=== PATIENT | female | born 1995 | race African-American/Black ===

== ENCOUNTER 2022-06-21 11:55 | Outpatient (CLI) | payer OTHER, SELFPAY ==
--- NOTE | ~2022-06-21 | US_ITS ---
EXAMINATION: US OB <= 14 weeks fetus DATE: 06/21/2022 12:39 INDICATION: Uncertain gestational dates. TECHNIQUE: Real-time transabdominal obstetric ultrasound. FINDINGS: No prior studies for comparison. The uterus measures 11.8 x 6.9 x 8.4 cm. There is an intrauterine gestational sac, with pole id entified. The crown rump length measures 2.8 cm, which correlates with a estimated gestational age o f 9 weeks 4 days. heart tones are identified measuring 172 bpm. The ovaries are within normal limits. No free fluid in the pelvis. IMPRESSION: 1. SL IUP with an EGA of 9 weeks, 4 days (EDC by current ultrasound of 01/20/2023). Reviewed, dictated and finalized at location A. 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 SL IUP with an EGA of 9 weeks, 4 days (EDC by current ultrasound of 3).
== END 2022-06-21 11:56 | disposition home or self-care (01) ==
LOC: ANHIMG 12:03
PROVIDERS: Visit Provider Obstetrics & Gynecology Gynecology
DX: Z36.87 Encounter for antenatal screening for uncertain dates (principal); Z3A.09 9 weeks gestation of pregnancy
CPT/HCPCS: 76801

== ENCOUNTER 2022-08-19 13:23 | Outpatient (CLI) | payer OTHER, SELFPAY ==
--- NOTE | ~2022-08-19 | US_ITS ---
EXAMINATION: US OB /maternal detail DATE: 08/19/2022 14:39 INDICATION: Second trimester anatomic survey TECHNIQUE: Real-time ultrasound of the pelvis was performed. COMPARISON: None. FINDINGS: There is a single living fetus in vertex presentation. The placenta is fundal. heart rate is 16 3 beats per minute (bpm). cardiac activity and movement are noted. The amniotic fluid in dex is subjectively normal. The following anatomy was identified as normal: 4 chamber heart 3 vessel cord cord insertion kidneys urinary bladder stomach spine diaphragm ventricles cisterna magna cerebellum The following biometric data were obtained: Biparietal diameter (BPD): 4.2 cm; head circumference (HC): 15.1 cm; abdominal circumference (AC): 12 .4 cm; femur length (FL): 2.6 cm. These measurements are concordant. Estimated weight is 221 g +/- 33 g, which correlates with the 48th percentile when 01/20/2023 is used as estimated date of delivery. As single measurements, these parameters are each equal to the following estimated gestational ages w ith ranges of +/- 2 standard deviations: BPD: 18 weeks 4 days +/- 1 weeks 5 days. HC: 18 weeks 1 days +/- 1 weeks 3 days. AC: 18 weeks 0 days +/- 2 weeks 0 days. FL: 18 weeks 0 days +/- 1 weeks 3 days. estimated gestational age based solely on measurements from this exam is 18 weeks 1 days +/- 1 weeks 2 days. IMPRESSION: 1. Single living fetus in vertex presentation. 2. Estimated weight is 221 g +/- 33 g, which correlates with the 48th percentile when 01/20/2023 is used as estimated date of delivery. Reviewed, dictated and finalized at location F. MANAGER IMPRESSION: 1. Single living fetus in vertex presentation. 2. Estimated weight is 221 g +/- 33 g, which correlates with the 48th per centile when 01/20/2023 is used as estimated date of delivery.
== END 2022-08-19 13:24 | disposition home or self-care (01) ==
PROVIDERS: Visit Provider Advanced Practice Midwife
DX: Z36.9 Encounter for antenatal screening, unspecified (principal)
CPT/HCPCS: 76805

== ENCOUNTER 2022-09-14 09:46 | Outpatient (CLI) | payer OTHER, SELFPAY ==
[2022-09-14 11:03] LABS: Basophils Percent Auto 0.5 % (0.2-1.2); Eosinophils Absolute Auto 0.1 K/mm3 (0-0.3); Eosinophils Percent Auto 1.8 % (0-4.4); Hematocrit 32.7 % (37.0-47.0); Immature Granulocyte Absolute 0.04 K/mm3 (0.00-0.031); Immature Granulocyte Percent A 0.7 % (0-0.5); Lymphocytes Absolute Auto 1.73 K/mm3 (0.9-3.2); Lymphocytes Percent Auto 31.7 % (18.3-44.2); Mean Corpuscular HGB Conc 33.6 g/dl (32-36); Mean Corpuscular Hemoglobin 30.8 pg (26-34); Mean Corpuscular Volume 91.6 fl (80-100); Mean Platelet Volume 11.6 fl (7.4-10.4); Monocytes Absolute Auto 0.6 K/mm3 (0.1-0.6); Monocytes Percent Auto 10.6 % (2.6-8.5); Neutrophils Percent Auto 54.7 % (45.5-73.1); Platelet Count Result 177 k/mm3 (150-375); Red Blood Count 3.57 M/mm3 (4.2-5.4); Red Cell Distribution Width 13.8 % (11.5-14.5); White Blood Count 5.5 K/mm3 (4.5-10.0)
[2022-09-14 12:00] LABS: HIV 1/2 Ab P24 Ag Result Negative (Negative)
[2022-09-14 12:20] LABS: Hemoglobin A1C 4.9 % (<5.7)
[2022-09-14 12:34] LABS: Hepatitis B Surface Antigen Negative (Negative); Rubella IgG Antibody 8.8 IU/ML
[2022-09-14 12:37] LABS: Vitamin D 25 Hydroxy 14.2 ng/mL
[2022-09-14 12:50] LABS: Hepatitis C Virus Antibody Negative (Negative)
[2022-09-15 13:09] LABS: Rapid Plasma Reagin Non-Reactive (NonReactive)
== END 2022-09-14 09:47 | disposition home or self-care (01) ==
LOC: ANHLAB 09:48
PROVIDERS: Visit Provider Obstetrics & Gynecology Gynecology
DX: Z36.9 Encounter for antenatal screening, unspecified (principal); Z3A.00 Weeks of gestation of pregnancy not specified
CPT/HCPCS: 36415; 82306; 82728; 83036; 85025; 86038; 86592; 86703; 86762; 86803; 86850; 86900; 86901; 87340; G0432

== ENCOUNTER 2022-10-12 09:47 | Outpatient (CLI) | payer OTHER, SELFPAY ==
--- NOTE | ~2022-10-12 | US_ITS ---
Pelvic ultrasound. Clinical History: Size greater than dates, third trimester Technique: Realtime transabdominal scanning of the pelvis was performed. Color flow Doppler and Doppl er spectral analysis were performed. Findings: The uterus is anteverted, and contains an intrauterine gestation. heart rate is 146 b pm. Placenta is anteriorly located. The tip of the placenta is 3 cm from the internal cervical os. Ce rvix is closed, measures 7.7 cm in length. Biparietal diameter 7.0 cm. Head circumference is 26.3 cm. Abdominal circumference is 22.8 cm. Femur length is 5.1 cm. Amniotic fluid index is 19.1 Neither ovary seen. There is no evidence of free fluid in the cul de sac. Impression: Live intrauterine gestation with estimated gestational age of 29 weeks 5 days, +/- 2 weeks 1 day. PABLO is 12/29/2022. Estimated weight is 1402 grams. Reviewed, dictated and finalized at [facility]. Impression: Live intrauterine gestation with estimated gestational age of 29 weeks 5 days, +/- 2 weeks 1 day. PABLO is 12/29/2022. Estimated weight is 1402 grams.
== END 2022-10-12 09:48 | disposition home or self-care (01) ==
PROVIDERS: Visit Provider Obstetrics & Gynecology Gynecology
DX: O36.63X0 Maternal care for excessive fetal growth, third trimester, not applicable or unspecified (principal); Z3A.29 29 weeks gestation of pregnancy
CPT/HCPCS: 76816

== ENCOUNTER 2022-12-06 09:41 | Outpatient (CLI) | payer OTHER, SELFPAY ==
--- NOTE | ~2022-12-06 | US_ITS ---
EXAMINATION: US OB follow up DATE: 12/06/2022 10:24 INDICATION: Gestational size greater than dates. TECHNIQUE: Real-time transabdominal obstetric ultrasound. FINDINGS: Comparison to multiple prior studies sequentially, with oldest reviewed study dated 2021. There is a single living fetus in breech presentation. The placenta is anterior without placenta pre via. cardiac activity and movement is noted with a heart rate of 125 beats per minute. T he amniotic fluid volume is normal. MELISSA measures 15.4 cm. The following biometric data were obtained: BPD: 83mm corresponds to gestational age 33 weeks 4 days. Head circumference: 312mm corresponds to gestational age 34 weeks 6 days. Abdominal circumference: 304mm corresponds to gestational age 34 weeks 3 days. Femur length: 65mm corresponds to gestational age 33 weeks 2 days. Estimated weight: 2338grams +/- 351grams 57.2%.] IMPRESSION: 1. Single living intrauterine in breech presentation with an estimated gestational age of 33 weeks 4 days by inititial ultrasound. Appropriate interval growth. 2. Normal placenta. 3: Normal MELISSA measures 15.4 cm. Reviewed, dictated and finalized at location L. IMPRESSION: 1. Single living intrauterine in breech presentation with an estimat ed gestational age of 33 weeks 4 days by inititial ultrasound. Appropriate int erval growth. 2. Normal placenta. 3: Normal MELISSA measures 15.4 cm.
== END 2022-12-06 09:42 | disposition home or self-care (01) ==
PROVIDERS: Visit Provider Advanced Practice Midwife
DX: O26.843 Uterine size-date discrepancy, third trimester (principal); Z3A.33 33 weeks gestation of pregnancy
CPT/HCPCS: 76816